=== PATIENT | female | born 1960 | race Two or more races ===

== ENCOUNTER 2019-11-08 12:22 | Outpatient (CLI) | payer OTHER ==
[~2019-11-08] VITALS: Ht 157.5 cm; Wt 58.5 kg
[2019-11-08] MEDS ORDERED: NORVASC2.5 M1 (12:28)
[2019-11-08] MEDS ORDERED: FLONASE16 GM NASAL (13:03)
== END 2019-11-08 17:05 | disposition home or self-care (01) ==
LOC: OFIC 805 12:22
PROVIDERS: ATTEND Otolaryngology Otology & Neurotology
DX: J31.0 Chronic rhinitis (principal); R09.81 Nasal congestion